=== PATIENT | male | born 1935 | race Caucasian/White ===

== ENCOUNTER 2016-04-23 04:56 | Emergency (ER) | payer OTHER ==
[~2016-04-23] VITALS: Ht 180.3 cm; Wt 88.5 kg
[~2016-04-23 04:56] MED LIST: ALBUAER3 IN; ALPR0.5T7 PO; ASPI81CH43 PO; CARV25TA PO; DIG025T PO; METH4PAK PO; ONDA4TAB5 PO; PAR20T PO; RAMI5CAP40 PO; WARF3TAB22 PO
[2016-04-23 05:09] VITALS: BP 124/78
[2016-04-23 05:58] LABS: Basophils # (auto) 0 uL; Basophils % (auto) 0.1 % (0.0-2.0); Eosinophils # (auto) 0.1 uL; Eosinophils % (auto) 1.2 % (0.0-7.0); Hematocrit 33.3 % (41.0-53.0); Hemoglobin 10.9 g/dL (13.5-17.5); Lymphocytes # (auto) 1.1 uL; Lymphocytes % (auto) 12.6 % (10.0-50.0); Mean Corpuscular Hemoglobin 28.9 pg (28.0-32.0); Mean Corpuscular Hgb Conc. 32.7 g/dL (32.0-36.0); Mean Corpuscular Volume 88.2 fL (80.0-100.0); Mean Platelet Volume 9.2 fL (7.4-10.4); Monocytes # (auto) 0.8 uL; Monocytes % (auto) 9.5 % (0.0-12.0); Neutrophils # (auto) 6.6 uL; Neutrophils % (auto) 76.6 % (37.0-80.0); Platelet Count (auto) 195 10^3/uL (140-450); Red Cell Distribution Width 17.7 % (11.6-16.0); White Blood Cell 8.7 10^3/uL (4.4-10.8)
[2016-04-23 06:19] LABS: Albumin 3.4 g/dL (3.4-5.0); BUN/Creatinine Ratio 15.1; Calcium 8.7 mg/dL (8.5-10.1); Magnesium 2.1 mg/dL (1.6-2.6); Potassium 4.1 mmol/L (3.5-5.1)
[2016-04-23 06:23] LABS: Partial Thromboplastin Time 31.5 sec (22.64-33.71)
[2016-04-23 06:24] LABS: Bilirubin, Total 1.1 mg/dL (0.2-1.0); Total Protein 7.5 g/dL (6.4-8.2)
[2016-04-23 06:41] LABS: INR 1.6 (0.9-1.15); Prothrombin Time 16.5 sec (9.37-12.3)
[2016-04-23 09:23] LABS: Urine Bilirubin Negative (Negative); Urine Blood Negative /uL (Negative); Urine Color Yellow (Yellow); Urine Glucose Normal (Normal); Urine Ketone Negative (Negative); Urine Nitrite Negative (Negative); Urine RBC 1 /hpf (0 - 3); Urine Urobilinogen Normal (Negative); Urine pH 6.5 (5.0-8.0)
[2016-04-24] MEDS ORDERED: GABA-494 PO (12:37)
[2016-04-24] MEDS ORDERED: CYCL5TAB PO (12:37)
[2016-04-24] MEDS ORDERED: CEFD300C2 PO (12:37)
[2016-04-24] MEDS ORDERED: FURO40TA4 PO (12:37)
[2016-04-24] MEDS ORDERED: PREG75CA PO (12:37)
[2016-04-24] MEDS ORDERED: TRAZ100T2 PO (12:37)
== END 2016-04-23 08:25 | disposition left against medical advice (07) ==
LOC: ER 04:58
DX: R53.1 Weakness (principal); Z53.21 Procedure and treatment not carried out due to patient leaving prior to being seen by health care provider
CPT/HCPCS: 36415; 71010; 80053; 81001; 83735; 84484; 85025; 85610; 85730; 93005

== ENCOUNTER 2016-05-09 10:04 | Emergency (ER) | payer OTHER ==
[~2016-05-09] VITALS: Ht 177.8 cm; Wt 86.2 kg
[~2016-05-09 10:04] MED LIST changes: +CEFD300C2 PO; +CYCL5TAB PO; +FURO40TA4 PO; +GABA-494 PO; +PREG75CA PO; +TRAZ100T2 PO
[2016-05-09 10:47] LABS: Basophils # (auto) 0 uL; Basophils % (auto) 0.3 % (0.0-2.0); DEFINITIVE VIEW TRANSMISSION; Eosinophils # (auto) 0.1 uL; Eosinophils % (auto) 0.9 % (0.0-7.0); Hematocrit 32.6 % (41.0-53.0); Hemoglobin 10.9 g/dL (13.5-17.5); Lymphocytes # (auto) 0.7 uL; Lymphocytes % (auto) 9.3 % (10.0-50.0); Mean Corpuscular Hemoglobin 29.9 pg (28.0-32.0); Mean Corpuscular Hgb Conc. 33.5 g/dL (32.0-36.0); Mean Corpuscular Volume 89.4 fL (80.0-100.0); Mean Platelet Volume 10.1 fL (7.4-10.4); Monocytes # (auto) 0.7 uL; Monocytes % (auto) 9.4 % (0.0-12.0); Neutrophils # (auto) 6.3 uL; Neutrophils % (auto) 80.1 % (37.0-80.0); Platelet Count (auto) 154 10^3/uL (140-450); White Blood Cell 7.8 10^3/uL (4.4-10.8)
[2016-05-09 11:15] LABS: Albumin 3.4 g/dL (3.4-5.0); BUN/Creatinine Ratio 20.2; Calcium 8.7 mg/dL (8.5-10.1); Magnesium 2.3 mg/dL (1.6-2.6); Potassium 4.4 mmol/L (3.5-5.1); Total Protein 7.3 g/dL (6.4-8.2)
[2016-05-09] MEDS ORDERED: InsuLIN REG 1unit/0.01ml Soln (100units/ml) IV ONE (11:45)
[2016-05-09 11:54] VITALS: BP 148/69
[2016-05-09 13:35] LABS: Temperature: 23.1 C (20.0-25.0)
== END 2016-05-09 13:00 | disposition left against medical advice (07) ==
LOC: ER 10:04
DX: I50.9 Heart failure, unspecified (principal); I48.91 Unspecified atrial fibrillation; J44.9 Chronic obstructive pulmonary disease, unspecified; E11.9 Type 2 diabetes mellitus without complications; I25.2 Old myocardial infarction; Z53.29 Procedure and treatment not carried out because of patient's decision for other reasons
CPT/HCPCS: 36415; 71020; 80053; 83735; 83880; 84484; 85025; 93005; 94761; 96374; J1815

== ENCOUNTER 2016-06-17 14:49 | Observation (INO) | payer OTHER ==
[~2016-06-17] VITALS: Ht 172.7 cm; Wt 77.1 kg
[2016-06-17 16:12] LABS: BUN/Creatinine Ratio 17.5; Bilirubin, Total 1.4 mg/dL (0.2-1.0); Calcium 8.7 mg/dL (8.5-10.1); Potassium 3.9 mmol/L (3.5-5.1); Total Protein 7.3 g/dL (6.4-8.2)
[2016-06-17 16:14] LABS: Basophils # (auto) 0 uL; Basophils % (auto) 0.1 % (0.0-2.0); Eosinophils # (auto) 0.1 uL; Hematocrit 29.5 % (41.0-53.0); Hemoglobin 9.9 g/dL (13.5-17.5); Lymphocytes # (auto) 0.9 uL; Lymphocytes % (auto) 8.9 % (10.0-50.0); Mean Corpuscular Hemoglobin 28.3 pg (28.0-32.0); Mean Corpuscular Hgb Conc. 33.6 g/dL (32.0-36.0); Mean Corpuscular Volume 84.4 fL (80.0-100.0); Mean Platelet Volume 9.5 fL (7.4-10.4); Monocytes # (auto) 1.1 uL; Monocytes % (auto) 11.8 % (0.0-12.0); Neutrophils # (auto) 7.6 uL; Neutrophils % (auto) 78.2 % (37.0-80.0); Platelet Count (auto) 182 10^3/uL (140-450); Red Cell Distribution Width 18.6 % (11.6-16.0); White Blood Cell 9.7 10^3/uL (4.4-10.8)
[2016-06-17] MEDS ORDERED: SODIUM CHLORIDE 0.9% 1,000 ML IV ONE (16:15)
[2016-06-17 16:26] LABS: Magnesium 2.3 mg/dL (1.6-2.6)
[2016-06-17 16:37] LABS: B-Type Natriuretic Peptide 416.56 pg/mL (0-100); Temperature: 22.3 C (20.0-25.0)
[2016-06-17 17:15] VITALS: BP 130/88
[2016-06-17 17:38] LABS: Partial Thromboplastin Time 31.7 sec (22.64-33.71)
[2016-06-17 17:40] LABS: INR 1.26 (0.9-1.15); Prothrombin Time 13.6 sec (9.37-12.3)
== END 2016-06-17 17:46 | disposition short-term general hospital (02) | DRG 85 ==
LOC: ER 14:49 → EDBD 14:49 → OVERFLOW 15:33 → ER 17:46
PROVIDERS: ADMIT Family Medicine; ATTEND Family Medicine
DX: S06.5X0A Traumatic subdural hemorrhage without loss of consciousness, initial encounter (principal); I63.9 Cerebral infarction, unspecified; G81.90 Hemiplegia, unspecified affecting unspecified side; J44.1 Chronic obstructive pulmonary disease with (acute) exacerbation; I11.0 Hypertensive heart disease with heart failure; I50.9 Heart failure, unspecified; I48.91 Unspecified atrial fibrillation; D64.9 Anemia, unspecified; I25.2 Old myocardial infarction; E11.40 Type 2 diabetes mellitus with diabetic neuropathy, unspecified; W19.XXXA Unspecified fall, initial encounter; Y93.89 Activity, other specified; Y92.008 Other place in unspecified non-institutional (private) residence as the place of occurrence of the external cause; Y99.8 Other external cause status
CPT/HCPCS: 36415; 70450; 71020; 73090; 73660; 80053; 80320; 82962; 83605; 83735; 83880; 84484; 85025; 85379; 85610; 85730; 87040; 93005; 96360; 99285; G0378; J7030; 99291

== ENCOUNTER 2016-08-09 22:40 | Emergency (ER) | payer OTHER ==
[~2016-08-09 22:40] MED LIST changes: +CAR125T OR; -CARV25TA PO; +FURO20TA3 PO; -FURO40TA4 PO; -GABA-494 PO; +KEP500T PO; +OLAN2.5T32 PO; +OLAN5TAB30 PO; -ONDA4TAB5 PO; -PREG75CA PO; -WARF3TAB22 PO; +WARF4TAB33 PO
[2016-08-09 23:54] LABS: Basophils # (auto) 0 uL; Basophils % (auto) 0.3 % (0.0-2.0); DEFINITIVE SEE PRINTOUT; Eosinophils # (auto) 0.2 uL; Hematocrit 28.7 % (41.0-53.0); Hemoglobin 9.6 g/dL (13.5-17.5); Lymphocytes # (auto) 1.5 uL; Lymphocytes % (auto) 18.5 % (10.0-50.0); Mean Corpuscular Hemoglobin 29.6 pg (28.0-32.0); Mean Corpuscular Hgb Conc. 33.3 g/dL (32.0-36.0); Mean Platelet Volume 9.1 fL (7.4-10.4); Monocytes # (auto) 0.8 uL; Monocytes % (auto) 9.6 % (0.0-12.0); Neutrophils # (auto) 5.6 uL; Neutrophils % (auto) 69.6 % (37.0-80.0); Platelet Count (auto) 166 10^3/uL (140-450); Red Cell Distribution Width 19.9 % (11.6-16.0); SUSPECT SEE PRINTOUT; White Blood Cell 8.1 10^3/uL (4.4-10.8)
[2016-08-10 00:11] LABS: Anion Gap 8 (5-15); Aspartate Aminotransferase 15 U/L (15-37); BUN/Creatinine Ratio 30.6; Blood Urea Nitrogen 33 mg/dL (7-18); Calcium 8.3 mg/dL (8.5-10.1); Carbon Dioxide 26 mmol/L (21-32); Chloride 103 mmol/L (98-107); GFR African American 84 mL/min; GFR Non-African American 70 mL/min; Glucose 111 mg/dL (74-106); Potassium 4.1 mmol/L (3.5-5.1); Sodium 137 mmol/L (136-145)
[2016-08-10 00:15] LABS: Alkaline Phosphatase 146 U/L (45-117); Bilirubin, Total 0.6 mg/dL (0.2-1.0)
[2016-08-10 00:16] LABS: INR 3.15 (0.9-1.15); Partial Thromboplastin Time 44.3 sec (22.64-33.71); Prothrombin Time 34.7 sec (9.37-12.3)
[2016-08-10 00:18] VITALS: BP 147/90
[2016-08-13] MEDS ORDERED: LORA-653 PO (21:16)
[2016-08-13] MEDS ORDERED: POTA8TAB2 PO (21:16)
[2016-08-13] MEDS ORDERED: AMIO200T33 PO (21:16)
== END 2016-08-10 02:03 | disposition home or self-care (01) ==
LOC: EDBD 22:40 → ER 22:40
DX: R51 Headache (principal); M79.1 Myalgia; M79.606 Pain in leg, unspecified; I11.0 Hypertensive heart disease with heart failure; I50.9 Heart failure, unspecified; J44.9 Chronic obstructive pulmonary disease, unspecified; F03.90 Unspecified dementia, unspecified severity, without behavioral disturbance, psychotic disturbance, mood disturbance, and anxiety; I48.91 Unspecified atrial fibrillation; E11.9 Type 2 diabetes mellitus without complications; Z86.73 Personal history of transient ischemic attack (TIA), and cerebral infarction without residual deficits; I25.2 Old myocardial infarction; F41.9 Anxiety disorder, unspecified; Z90.49 Acquired absence of other specified parts of digestive tract; Z98.61 Coronary angioplasty status; Z87.891 Personal history of nicotine dependence; W18.39XA Other fall on same level, initial encounter; Y93.89 Activity, other specified; Y99.8 Other external cause status; Y92.89 Other specified places as the place of occurrence of the external cause
CPT/HCPCS: 36415; 70450; 80053; 84484; 85025; 85610; 85730; 93005

== ENCOUNTER 2016-09-19 01:23 | Emergency (ER) | payer OTHER ==
[~2016-09-19] VITALS: Ht 182.9 cm; Wt 81.6 kg
[~2016-09-19 01:23] MED LIST changes: +AMIO200T33 PO; +LORA-653 PO; +POTA8TAB2 PO
[2016-09-19] MEDS ORDERED: SODIUM BICARBONATE 8.4% INJ 50ML SYRINGE ONE (01:45)
[2016-09-19 01:52] LABS: Allen Test Yes; Blood 02Sat 97.8 % (96-100); Blood COHb 0.3 % (0.5-1.5); Blood MetHb 0.5 % (0.0-1.5); HCO3 19.7 mmol/L (22-26.0); HHb 2.2 % (0.0-5.0); MODE AMBU BAG; PCO2(T) 84.1 mmHg (35.0-45.0); PO2 223.7 mmHg (80.0-100.0); PO2(T) 221.3 mmHg (80.0-100.0); Sample Type Arterial; pH 6.977 (7.350-7.450)
[2016-09-19] MEDS: CALCIUM CHL 100MG/ML 1,000 MG in D5W 5% 100 ML IV ONE ×2 (02:13→04:05)
[2016-09-19] MEDS ORDERED: NOREPINEPHRINE BITARTRATE 250 ML IV ONE (02:14)
[2016-09-19 02:17] LABS: Basophils # (auto) 0 uL; Basophils % (auto) 0.3 % (0.0-2.0); CONDITION Y; DEFINITIVE SEE PRINTOUT; Eosinophils # (auto) 0 uL; Eosinophils % (auto) 0.2 % (0.0-7.0); Hematocrit 24.3 % (41.0-53.0); Hemoglobin 8.1 g/dL (13.5-17.5); Lymphocytes # (auto) 3.3 uL; Lymphocytes % (auto) 24.8 % (10.0-50.0); Mean Corpuscular Hemoglobin 31.5 pg (28.0-32.0); Mean Corpuscular Hgb Conc. 33.5 g/dL (32.0-36.0); Mean Corpuscular Volume 94.1 fL (80.0-100.0); Mean Platelet Volume 9.8 fL (7.4-10.4); Monocytes # (auto) 0.2 uL; Monocytes % (auto) 1.7 % (0.0-12.0); Neutrophils # (auto) 9.7 uL; Platelet Count (auto) 140 10^3/uL (140-450); Red Cell Distribution Width 19.5 % (11.6-16.0); White Blood Cell 13.4 10^3/uL (4.4-10.8)
[2016-09-19 02:31] LABS: Albumin 2.1 g/dL (3.4-5.0); Anion Gap 15 (5-15); Aspartate Aminotransferase 185 U/L (15-37); Blood Urea Nitrogen 13 mg/dL (7-18); Calcium 7.7 mg/dL (8.5-10.1); Carbon Dioxide 22 mmol/L (21-32); Chloride 91 mmol/L (98-107); GFR African American 76 mL/min; GFR Non-African American 63 mL/min; Glucose 169 mg/dL (74-106); INR 1.17 (0.9-1.15); Magnesium 2.6 mg/dL (1.6-2.6); Partial Thromboplastin Time 41.4 sec (22.64-33.71); Potassium 4.7 mmol/L (3.5-5.1); Sodium 128 mmol/L (136-145)
[2016-09-19 02:35] LABS: Prothrombin Time 12.8 sec (9.37-12.3)
[2016-09-19 02:36] LABS: Alkaline Phosphatase 175 U/L (45-117); Bilirubin, Total 0.8 mg/dL (0.2-1.0); Total Protein 5.4 g/dL (6.4-8.2)
[2016-09-19] MEDS ORDERED: NOREPINEPHRINE BITARTRATE 250 ML IV SCH (02:45)
[2016-09-19] MEDS ORDERED: DOPamine 1600MCG/ML 250 ML IV ONE (02:45)
[2016-09-19 03:53] VITALS: BP 112/52
[2016-09-19] MEDS ORDERED: SODIUM BICARBONATE 8.4 % INJ 50ML VIAL IV ONE (04:00)
[2016-09-19] MEDS ORDERED: ATROPINE SULF 0.5 MG/5ML SYR IV ONE (04:00)
[2016-09-19] MEDS ORDERED: CALCIUM GLUC 4.65meq/50ml D5AE 50 ML IV ONE (04:15)
[2016-09-19] MEDS ORDERED: SODIUM CHLORIDE 0.9% 2,000 ML IV ONE (04:45)
[2016-09-19] MEDS ORDERED: SODIUM BICARBONATE 8.4% INJ 50ML SYRINGE IV ONE (11:00)
[2016-09-19] MEDS ORDERED: CALCIUM CHLOR(10%) 100MG/ML 10ML SYRINGE IV ONE (11:00)
[2016-09-19] MEDS ORDERED: EPINEPHrine HCL 1 MG/10 ML SYRG IV ONE (11:00)
== END 2016-09-19 06:28 | disposition expired ==
LOC: EDBD 01:23 → EDUNIT# 01:23 → ER 01:27
DX: I46.9 Cardiac arrest, cause unspecified (principal); Z86.73 Personal history of transient ischemic attack (TIA), and cerebral infarction without residual deficits; J44.9 Chronic obstructive pulmonary disease, unspecified; E78.00 Pure hypercholesterolemia, unspecified; F03.90 Unspecified dementia, unspecified severity, without behavioral disturbance, psychotic disturbance, mood disturbance, and anxiety; E11.9 Type 2 diabetes mellitus without complications; I48.91 Unspecified atrial fibrillation; I11.0 Hypertensive heart disease with heart failure; I50.9 Heart failure, unspecified; I25.2 Old myocardial infarction; Z79.82 Long term (current) use of aspirin; Z79.01 Long term (current) use of anticoagulants; E78.5 Hyperlipidemia, unspecified; Z90.49 Acquired absence of other specified parts of digestive tract; Z87.891 Personal history of nicotine dependence; Z85.528 Personal history of other malignant neoplasm of kidney
CPT/HCPCS: 31500; 36415; 36600; 51702; 80053; 82805; 83735; 84484; 85025; 85610; 85730; 87070; 87077; 87186; 87205; 92950; 93005; 96360; 99285; J0171; J0610; J7060